=== PATIENT | female | born 1980 | race Caucasian/White ===

== ENCOUNTER → 2018-05-30 17:14 | Inpatient (IN) | payer MEDICAID ==
[2018-05-27 10:48] LABS: ADD MAN DIFF? NO
[2018-05-27 10:51] LABS: BASOPHIL # 0.1 10^3/ul (0.0-0.1); BASOPHILS % 0.8 % (0.0-2.0); EOSINOPHILS # 0.1 10^3/ul (0.0-0.5); EOSINOPHILS % 0.9 % (0.0-7.0); HEMATOCRIT 39.5 % (37.0-47.0); HEMOGLOBIN 12.9 g/dl (12.0-16.0); LYMPHOCYTES % 30.7 % (15.0-51.0); MEAN CORPUSCULAR HEMOGLOBIN 29.1 pg (29.0-33.0); MEAN CORPUSCULAR HGB CONC 32.7 g/dl (32.0-37.0); MEAN CORPUSCULAR VOLUME 89.2 fl (82.0-101.0); MEAN PLATELET VOLUME 10.3 fl (7.4-10.4); MONOCYTE # 0.5 10^3/ul (0.3-0.9); MONOCYTES % 7.7 % (0.0-11.0); NEUTROPHIL # 3.9 10^3/ul (1.6-7.5); NEUTROPHILS % 59.6 % (39.0-77.0); PLATELET COUNT 223 10^3/UL (140-415); RED BLOOD COUNT 4.43 10^6/ul (4.20-5.40); RED CELL DISTRIBUTION WIDTH 13.8 % (11.5-14.5)
[2018-05-27 10:51] LABS: WHITE BLOOD COUNT 6.6 10^3/ul (4.8-10.8)
[2018-05-27 11:07] LABS: GLUCOSE 82 mg/dl (70-220)
[2018-05-27 11:12] LABS: INR 0.86; PROTIME 11.8 Sec (11.9-14.9); PT RATIO 0.9
[2018-05-27 11:15] LABS: PARTIAL THROMBOPLASTIN TIME 31.2 Sec (25.0-35.0)
[2018-05-27] MEDS: MISOPROSTOL 25 MCG CAPSULE PO (12:15)
[2018-05-27] MEDS: DEXTROSE 5%-LR 1,000 ML IV (21:25)
[2018-05-27] MEDS: LACTATED RINGER'S 1,000 ML IV* (23:00)
[2018-05-27] MEDS: BUTORPHANOL 2 MG INJ IV (23:42)
[2018-05-28] MEDS: MISOPROSTOL 25 MCG CAPSULE PO (02:41)
[2018-05-28] MEDS: METHYLERGONOVINE 0.2 MG INJ IM (02:47)
[2018-05-28] MEDS: LIDOCAINE 1% (MPF) 30 ML INJ INJ (02:48)
[2018-05-28] MEDS: OXYTOCIN 30 UNITS/LR 500 ML IV ×2 (02:55→03:18)
[2018-05-28] MEDS: LACTATED RINGER'S 1,000 ML IV* (06:19)
[2018-05-28] MEDS: WITCH HAZEL/GLYCERIN PAD PR (07:56)
[2018-05-28] MEDS: BENZOCAINE 20% 56 ML SPRAY TOP (07:57)
[2018-05-28] MEDS: SENNA/DOCUSATE NA (8.6MG/50MG) TAB PO (09:06)
[2018-05-28] MEDS: IBUPROFEN 600 MG TAB PO ×2 (11:37→18:09)
[2018-05-28 15:13] LABS: RAPID PLASMA REAGIN NONREACTIVE (NR)
[2018-05-29] MEDS: SENNA/DOCUSATE NA (8.6MG/50MG) TAB PO ×3 (00:18→21:04)
[2018-05-29] MEDS: IBUPROFEN 600 MG TAB PO ×4 (00:18→17:35)
[2018-05-29 09:02] LABS: ADD MAN DIFF? NO
[2018-05-29 09:12] LABS: BASOPHILS % 0.5 % (0.0-2.0); EOSINOPHILS # 0.1 10^3/ul (0.0-0.5); EOSINOPHILS % 1.4 % (0.0-7.0); HEMATOCRIT 32.5 % (37.0-47.0); HEMOGLOBIN 10.9 g/dl (12.0-16.0); LYMPHOCYTES # 2.4 10^3/ul (0.8-2.9); LYMPHOCYTES % 27.6 % (15.0-51.0); MEAN CORPUSCULAR HEMOGLOBIN 30.1 pg (29.0-33.0); MEAN CORPUSCULAR HGB CONC 33.5 g/dl (32.0-37.0); MEAN CORPUSCULAR VOLUME 89.8 fl (82.0-101.0); MEAN PLATELET VOLUME 10.6 fl (7.4-10.4); MONOCYTE # 0.4 10^3/ul (0.3-0.9); MONOCYTES % 4.5 % (0.0-11.0); NEUTROPHIL # 5.7 10^3/ul (1.6-7.5); NEUTROPHILS % 65.7 % (39.0-77.0); PLATELET COUNT 234 10^3/UL (140-415); RED BLOOD COUNT 3.62 10^6/ul (4.20-5.40); RED CELL DISTRIBUTION WIDTH 14.2 % (11.5-14.5)
[2018-05-29 09:12] LABS: WHITE BLOOD COUNT 8.7 10^3/ul (4.8-10.8)
[2018-05-30] MEDS: LANOLIN 7 GM TUBE TOP (00:42)
[2018-05-30] MEDS: IBUPROFEN 600 MG TAB PO ×3 (00:42→12:35)
[2018-05-30] MEDS: SENNA/DOCUSATE NA (8.6MG/50MG) TAB PO (09:08)
[2018-05-30] MEDS: DIPHTH/TET/ACEL PERTUSS (ADULT) 0.5 ML VIAL IM* (12:37)
[~2018-05-30 17:14] MED LIST: ACCU-CHEK XX; ACETAMINOPHEN 325 MG TAB PO; CARBOPROST 250 MCG INJ IM; DIBUCAINE 1% 30 GM OINT PR; HYDROCODONE/APAP (5/325) TAB PO; IBUPROFEN 600 MG TAB PO; METHYLERGONOVINE 0.2 MG INJ IM; MISOPROSTOL 200 MCG TAB PR; OXYCODONE/ACETAMINOPHEN (5/325) TAB PO; OXYTOCIN 30 UNITS/LR 500 ML IV
== END | disposition home or self-care (01) | DRG 775 ==
PROVIDERS: Obstetrics & Gynecology
PROC: 3E033VJ Introduction of Other Hormone into Peripheral Vein, Percutaneous Approach (ICD-10-PCS; 2018-05-27 09:00)
DX: O24.429 Gestational diabetes mellitus in childbirth, unspecified control (principal); O70.1 Second degree perineal laceration during delivery; Z37.0 Single live birth; O66.0 Obstructed labor due to shoulder dystocia; Z3A.39 39 weeks gestation of pregnancy
CPT/HCPCS: 76815; 82947; 82962; 85025; 85610; 85730; 86592; 86850; 86900; 86901; 90715; 99464